=== PATIENT | female | born 1995 | race Caucasian/White ===

== ENCOUNTER → 2023-09-18 14:00 | Outpatient (BNVA) | payer BC, SELFPAY | PROVIDERS: Visit Provider Nurse Practitioner Women's Health | DX: N92.6 Irregular menstruation, unspecified (principal) | CPT/HCPCS: 81025; 82950 ==

== ENCOUNTER → 2023-10-12 15:17 | Outpatient (BNVA) | payer BC, SELFPAY | PROVIDERS: Visit Provider Nurse Practitioner Women's Health | DX: Z36.87 Encounter for antenatal screening for uncertain dates (principal) | CPT/HCPCS: 76801 ==

== ENCOUNTER → 2023-10-27 10:01 | Outpatient (BNVA) | payer BC, SELFPAY | PROVIDERS: Visit Provider Obstetrics & Gynecology | DX: Z34.90 Encounter for supervision of normal pregnancy, unspecified, unspecified trimester (principal) | CPT/HCPCS: 80307; 84315; 85025; 86592; 86762; 86803; 86850; 86900; 87086; 87340; 87624; 87806 ==

== ENCOUNTER → 2023-12-08 08:12 | Outpatient (BNVA) | payer BC, SELFPAY | PROVIDERS: Visit Provider Nurse Practitioner Women's Health | DX: Z34.90 Encounter for supervision of normal pregnancy, unspecified, unspecified trimester (principal); J40 Bronchitis, not specified as acute or chronic | CPT/HCPCS: 82950; 84315; 87340 ==

== ENCOUNTER → 2023-12-15 08:09 | Outpatient (BNVA) | payer BC, SELFPAY | PROVIDERS: Visit Provider Nurse Practitioner Women's Health | DX: Z34.00 Encounter for supervision of normal first pregnancy, unspecified trimester (principal) | CPT/HCPCS: 82951; 82952 ==

== ENCOUNTER → 2024-01-04 14:10 | Outpatient (BNVA) | payer BC, SELFPAY | PROVIDERS: Visit Provider Obstetrics & Gynecology | DX: Z34.92 Encounter for supervision of normal pregnancy, unspecified, second trimester (principal) | CPT/HCPCS: 76805 ==

== ENCOUNTER → 2024-02-22 11:44 | Outpatient (BNVA) | payer BC, SELFPAY | PROVIDERS: Visit Provider Obstetrics & Gynecology | DX: Z34.02 Encounter for supervision of normal first pregnancy, second trimester (principal) | CPT/HCPCS: 82950 ==

== ENCOUNTER → 2024-02-24 08:20 | Outpatient (BNVA) | payer BC, SELFPAY | PROVIDERS: Visit Provider Obstetrics & Gynecology | DX: Z34.02 Encounter for supervision of normal first pregnancy, second trimester (principal) | CPT/HCPCS: 82951; 82952 ==

== ENCOUNTER → 2024-04-04 14:22 | Outpatient (BNVA) | payer BC, SELFPAY | PROVIDERS: Visit Provider Obstetrics & Gynecology | DX: O26.892 Other specified pregnancy related conditions, second trimester (principal); Z67.91 Unspecified blood type, Rh negative | CPT/HCPCS: 86850 ==

== ENCOUNTER → 2024-04-12 13:56 | Outpatient (BNVA) | payer BC, SELFPAY | PROVIDERS: Visit Provider Obstetrics & Gynecology | DX: Z34.02 Encounter for supervision of normal first pregnancy, second trimester (principal) | CPT/HCPCS: 84315; 87086 ==

== ENCOUNTER → 2024-04-19 13:22 | Outpatient (BNVA) | payer BC, SELFPAY | PROVIDERS: Visit Provider Obstetrics & Gynecology | DX: Z36.2 Encounter for other antenatal screening follow-up (principal); Z3A.35 35 weeks gestation of pregnancy | CPT/HCPCS: 76816 ==

== ENCOUNTER → 2024-04-25 14:16 | Outpatient (BNVA) | payer BC, SELFPAY | PROVIDERS: Visit Provider Nurse Practitioner Women's Health | DX: Z34.02 Encounter for supervision of normal first pregnancy, second trimester (principal) | CPT/HCPCS: 84315; 85025; 87081; 87086 ==

== ENCOUNTER 2024-05-11 08:44 | Inpatient (IN) | payer BC, SELFPAY ==
[2024-05-11] VITALS (58 sets, daily range): BP systolic 105–154; BP diastolic 57–94; PULSE 55–121; RESP 16–18; TEMP 36.7–37.1; O2SAT 100; BMI 28.4
[2024-05-11 09:47] LABS: Basophils % 0.3 %; Eosinophils # 0.1 10^3/uL (0.0-0.8); Eosinophils % 0.6 %; Hematocrit 35.2 % (36-47); Lymphocytes # 1.2 10^3/uL (0.8-4.8); Lymphocytes % 12.5 %; Mean Corpuscular HGB Conc 31.8 g/dL (30-55); Mean Corpuscular Hemoglobin 26.6 pg (27-33); Mean Corpuscular Volume 83.6 fl (85-98); Mean Platelet Volume 10.2 fL (7.4-10.4); Monocytes # 0.5 10^3/uL (0.2-0.9); Monocytes % 5.1 %; Neutrophils # 7.71 10^3/uL (1.8-7.7); Nucleated Red Blood Cells % 0 %; Platelet Count 253 10^3/cmm (157-399); Red Blood Count 4.21 10^6/uL (3.85-5.65); Red Cell Distribution Width 14.4 % (12.1-15.1); White Blood Count 9.53 10^3/uL (3.29-11.43)
--- NOTE | 2024-05-11 10:05 | P.HP_ITS ---
Providers/Chief Complaint 2 Admitting Physician: Shawn Pagan MD Primary HEEL WASHER STRINGING MACHINE OPERATOR: Shawn Pagan MD Chief Complaint: Vaginal Discharge HPI HEEL WASHER STRINGING MACHINE OPERATOR History of Present Illness Ngoc Nassar is a 29 year old female G1 EDC May 21, 2024 At 38 w 4 d Presented to L&D c/o fluid leakage Mild UCs No bleeding + movements Present Details : 1 Labs Rubella: Immune RPR: Negative GBS: Negative Medications/Allergies Home Medications Medication Instructions Recorded Confirmed Last Taken Type bupropion HCl 150 mg tablet,12 hr 150 mg PO BID 09/18/23 05/09/24 05/11/24 07:00 History sustained-release (Wellbutrin SR) docosahexaenoic acid 200 mg mg PO DAILY 01/11/24 05/09/24 Unknown History capsule ( DHA) FreeStyle [place] (blood-glucose 1 ea miscellaneous .COMPLEX #1 ea 04/15/24 05/09/24 Unknown Rx meter) vit no.95-ferrous tab PO 05/11/24 05/11/24 07:00 History fumarate 28 mg-folic acid 800 mcg tablet () Allergies Allergy/AdvReac Type Severity Reaction Status Date / Time doxycycline Allergy Intermediate other Verified 05/09/24 16:05 PFSH HEEL WASHER STRINGING MACHINE OPERATOR 2 PFSH: Family History Grandmother Diabetes Heart disease Stroke Colon cancer paternal Mother Diabetes Grandfather Diabetes Heart disease Stroke Colon cancer paternal Denies family history of Ovarian cancer Prostate cancer Hypercholesteremia Hypertension Uterine cancer Thyroid disease Social History Smoking and tobacco/nicotine status: never used tobacco/nicotine History History History 2 1 Term 0 Miscarriages/Ectopic Living Children Care WILLAM Calculator 2 Estimated Delivery Date Method Current WG Current Estimate 05/21/24 LMP (Certain) 38w 5d Other Estimates 05/19/24 Ultrasound #1 39w 0d Specific Issues/Plans * * GESTATIONAL DIABETES: Diet controlled, accuchecks have been normal so far, 1-h glucola done February 22, 2024 was 178, 3-h GTT done February 24, 2024 showed normal fasting glucose and elevated 1-h and 2-h values * RH NEGATIVE STATUS IN : Rhogam given on 04/04/24 * GROUP B STREP NEGATIVE Vitals/I&O/Wt Last Vital Signs Temp 98.7 F 05/12/24 13:45 Pulse 89 05/12/24 13:45 Resp 16 05/12/24 13:45 BP 111/77 05/12/24 13:45 Pulse Ox 99 05/12/24 09:45 O2 Del Method Room Air 05/12/24 09:45 Weight last 48 hrs Weight 171 lb Weight 171 lb Physical Exam 2 Narrative: Weight 171 lbs; 5?5? VS normal General comfortable, awake, alert Lungs: clear Cor: RRR Abd: nontender FH 37 cm, cephalic Cervix 3 cm / 100 / -2 Ext: normal External monitor: heart tracing good variability, + accelerations Urinary Catheter Management: Salcedo: Cath Placed During This Visit: yes Reason for Continuing Indwelling Catheter: Other Urinary Catheter Date of Insertion: 05/11/24 Urinary Catheter Time of Insertion: 12:55 Data 05/12/24 08:03 Results Labs OB ([facility]): 2 Obstetrics US 04/19/24 Blood Type A Negative 05/11/24 Antibody Screen Positive 05/11/24 Hct 30.4 % (36-47) L 05/12/24 Hgb 9.70 g/dL (11.27-16.99) L 05/12/24 Rho(D) Type Rh negative 05/11/24 Plt Count 214 10^3/cmm (157-399) 05/12/24 Hep Bs Antigen Non-reactive (Nonreactive) 12/08/23 Hepatitis C Antibody Non-reactive (Nonreactive) 10/27/23 Rubella IgG Antibody > 500.0 IU/mL (0.0-10.0) H 10/27/23 RPR Nonreactive (Nonreactive) 10/27/23 HIV 1&2 Ab & HIV 1 Ag Non-reactive (Non-Reactiv) 10/27/23 Glucose 1 Hr 50 gm 178 mg/dL (85-140) H 02/22/24 Gest Glucose Tolerance mg/dL 02/24/24 HCG, Qual Positive (Negative) H 09/18/23 Urine Opiates Screen Negative ng/mL (Negative) 10/27/23 Ur Barbiturates Screen Negative ng/mL (Negative) 10/27/23 Ur Phencyclidine Scrn Negative ng/mL (Negative) 10/27/23 Ur Amphetamines Screen Negative ng/mL (Negative) 10/27/23 U Benzodiazepines Scrn Negative ng/mL (Negative) 10/27/23 Urine Cocaine Screen Negative ng/mL (Negative) 10/27/23 U Marijuana (THC) Screen Negative ng/mL (Negative) 10/27/23 Micro Urine Specimen 04/25/24 Pap Smear Interpret See note 10/27/23 A&P Assessment and plan (1) Supervision of normal first : 38 w 4 d Spontaneous rupture of membranes Fetus reassuring Admit Expectant mx Qualifiers: Trimester: second trimester Qualified Code(s): Z34.02 - Encounter for supervision of normal first , second trimester (2) Rh negative status during : Qualifiers: Trimester: second trimester Qualified Code(s): O26.892 - Other specified related conditions, second trimester; Z67.91 - Unspecified blood type, Rh negative Attestations 2 Medical Necessity Statement*: patient at 38 w 4 d, presented with spontaneous rupture of membranes Coding Level of Care Code Acute Code for Chg Fwd Diagnoses Encounter for supervision of normal first in second trimester Z34.02 Trimester: second trimester Rh negative status during in second trimester O26.892; Z67.91 Trimester: second trimester Time Spent (min) 30
[2024-05-11] MEDS: fentaNYL 50 mcg/mL INJ 2mL IVP (11:07)
[2024-05-11] MEDS: dextrose 5%-lactated ringers 1,000 ML 125 ML IV ×2 (11:10→18:07)
[2024-05-11] MEDS: lactated ringers 1,000 ML 999 ML IV (11:18)
--- NOTE | 2024-05-11 12:14 | P.ANESASSM_ITS ---
Pre-Anesthetic Assessment Height/Weight: Height 1.65 m Weight 77.564 kg Pulse BP O2 Del Method 74 145/71 Room Air 05/11/24 11:55 05/11/24 11:55 05/11/24 08:30 Preop Diagnosis: labor pain epidural Was Beta Krissy taken within 24 hours: N/A Was Clonidine taken within 24 hours: N/A Social No alcohol and No tobacco Exam alert, oriented x 3, clear to auscultation bilaterally and regular rate & rhythm Airway Submandibular: within normal limits Cervical ROM: within normal limits Mallampati: Class II Dentition: full Pulmonary None reported bronchitis used inhaler beginning of CV/HEM None reported None reported Hepatic None reported GI Gastroesophageal Reflux Disease Metabolic Diabetes Mellitus (gestational) Musc/skel None reported Neuropsych Anxiety Anesthetic Plan ASA status: 2 Anesthesia: Regional (specify below) Risk of > 500 ml blood loss (7ml/kg in children): No Medications/Allergies Home Medications Medication Instructions Recorded Confirmed Last Taken Type bupropion HCl 150 mg tablet,12 hr 150 mg PO BID 09/18/23 05/09/24 05/11/24 07:00 History sustained-release (Wellbutrin SR) docosahexaenoic acid 200 mg mg PO DAILY 01/11/24 05/09/24 Unknown History capsule ( DHA) FreeStyle [place] (blood-glucose 1 ea miscellaneous .COMPLEX #1 ea 04/15/24 05/09/24 Unknown Rx meter) vit no.95-ferrous tab PO 05/11/24 05/11/24 07:00 History fumarate 28 mg-folic acid 800 mcg tablet () Allergies Allergy/AdvReac Type Severity Reaction Status Date / Time doxycycline Allergy Intermediate other Verified 05/09/24 16:05 Current Medications Generic Name Dose Route Start Last Admin Trade Name Freq PRN Reason Stop Dose Admin Fentanyl 25 - 100 mcg 05/11/24 09:08 05/11/24 11:07 Fentanyl 50 Mcg/Ml Inj 2ml IVP 25 mcg Q1H PRN Administration SEVERE PAIN Dextrose/Lactated Ringer's 1,000 mls @ 125 mls/hr 05/11/24 08:45 05/11/24 11:10 Dextrose 5%-Lactated Ringers IV 125 mls/hr .Q8H OJSIE Administration Lactated Ringer's 1,000 mls @ 999 mls/hr 05/11/24 11:12 05/11/24 11:18 Lactated Ringers IV 999 mls/hr .Q1H1M PRN Administration See label comments PFSH Anesthesia Family History Grandmother Diabetes Heart disease Stroke Colon cancer paternal Mother Diabetes Grandfather Diabetes Heart disease Stroke Colon cancer paternal Denies family history of Ovarian cancer Prostate cancer Hypercholesteremia Hypertension Uterine cancer Thyroid disease Social History Smoking and tobacco/nicotine status: never used tobacco/nicotine Female Reproductive History : 1 Data Anesthesia 05/11/24 08:55 Short CBC 05/11/24 Range/Units 08:55 WBC 9.53 (3.29-11.43) 10^3/uL Hgb 11.20 L (11.27-16.99) g/dL Hct 35.2 L (36-47) % MCV 83.6 L (85-98) fl Plt Count 253 (157-399) 10^3/cmm Neut % (Auto) 81.0 % Neut # (Auto) 7.71 H (1.8-7.7) 10^3/uL Blood Bank 05/11/24 08:55 Blood Type A Negative Rho(D) Type Rh negative Antibody Screen Positive Cardiac Studies: 2 No Data to Display
[2024-05-11] MEDS: ROPivacaine syringe 100 MG/50 ML SYRINGE 13 MG EPIDURAL ×2 (12:21→15:52)
--- NOTE | 2024-05-11 12:42 | ANES.PROC ---
Anesthesia Procedures Procedure/Date: 05/11/24 epidural Procedure Narrative: epidural complete, bolus given, epidural pump initiated with APPOINTMENT CLERK education given, vitals taken during procedure and satisfactory throughout, patient admits to decrease pain, report of procedure to OB RN Epidural: Time Out Performed: Yes Consents Signed: Procedure Consent Consent: requested by attending/covering physician, from patient, risks and benefits reviewed and patient agrees to proceed Lumbar Level: L3-L4 Epidural position: sitting Epidural procedure: sterile prep of area, 1% lidocaine to numb the area (3 mL), 18 g needle, negative for paresthesia passed, neg for paresthesia, test dose given, 1.5% xylocaine 1:200k epi (5 mL), 0.2% Ropivacaine bolus ml (5 mL), placed PCEA, no systemic response, sterile dressing applied, L.U.D. no apparent complications and 0.2% Ropiavacaine @ mls/hr (13 mL/hr)
--- NOTE | 2024-05-11 12:55 | P.PN_ITS ---
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 Subjective: Interval history: Fetus reassuring Having strong UCs Cervix: 5 cm / 100 / -2 Labor: Station: 0 Amniotic Membrane Status: Ruptured Monitor Mode: External Contraction Pattern: Regular Vitals/I&O/Wt Last Vital Signs Temp 98.7 F 05/12/24 13:45 Pulse 89 05/12/24 13:45 Resp 16 05/12/24 13:45 BP 111/77 05/12/24 13:45 Pulse Ox 99 05/12/24 09:45 O2 Del Method Room Air 05/12/24 09:45 Weight last 48 hrs Weight 171 lb Weight 171 lb Physical Exam 2 Urinary Catheter Management: Salcedo: Cath Placed During This Visit: yes Reason for Continuing Indwelling Catheter: Other Urinary Catheter Date of Insertion: 05/11/24 Urinary Catheter Time of Insertion: 12:55 Data 05/12/24 08:03 A&P Assessment and plan (1) Supervision of normal first : Qualifiers: Trimester: second trimester Qualified Code(s): Z34.02 - Encounter for supervision of normal first , second trimester Attestations 2 Medical Necessity Statement*: patient at 38 w 4 d, presented with spontaneous rupture of membranes Coding Level of Care Code Acute Code for Chg Fwd Diagnoses Encounter for supervision of normal first in second trimester Z34.02 Trimester: second trimester Time Spent (min) 20
--- NOTE | 2024-05-11 19:55 | PM.OBGYPN ---
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 Subjective: Interval history: DELIVERY NOTE , vigorous Cord gases and blood obtained Normal placenta and cord No episiotomy Second-degree perineal laceration repaired EBL: 300 cc No complications Labor: Station: 0 Amniotic Membrane Status: Ruptured Monitor Mode: External Contraction Pattern: Regular Vitals/I&O/Wt Last Vital Signs Temp 98.7 F 05/12/24 13:45 Pulse 89 05/12/24 13:45 Resp 16 05/12/24 13:45 BP 111/77 05/12/24 13:45 Pulse Ox 99 05/12/24 09:45 O2 Del Method Room Air 05/12/24 09:45 Weight last 48 hrs Weight 171 lb Weight 171 lb Physical Exam Urinary Catheter Management: Salcedo: Cath Placed During This Visit: yes Reason for Continuing Indwelling Catheter: Other Urinary Catheter Date of Insertion: 05/11/24 Urinary Catheter Time of Insertion: 12:55 Data 05/12/24 08:03 A&P Assessment and plan (1) Vaginal delivery: Attestations Medical Necessity Statement*: patient s/p vaginal delivery, plan care Coding Level of Care Code Acute Code for Chg Fwd Diagnoses Vaginal delivery O80 Time Spent (min) 60
--- NOTE | 2024-05-11 20:00 | PM.DELIVERY ---
Delivery Note: Date of delivery: May 11, 2024 Pre-delivery diagnoses: 38 w 4 d spontaneous rupture of membranes active labor Post-delivery diagnoses: 38 w 4 d spontaneous rupture of membranes active labor vaginal delivery repair of second-degree perineal laceration Procedure: vaginal delivery repair of second-degree perineal laceration Op report anesthesia: Epidural Delivering Physician: Shawn Pagan MD Estimated blood loss (mL): 300 Findings: , vigorous Cord gases and blood obtained Normal placenta and cord No episiotomy Second-degree perineal laceration repaired EBL: 300 cc No complications Pre-Delivery Course: normal labor course fetus was reassuring throughout Delivery: vaginal Post-Delivery Status: good History History History 1 Term 0 Miscarriages/Ectopic Living Children A&P Assessment and plan (1) Vaginal delivery: Coding Level of Care Code Acute Code for Chg Fwd Diagnoses Vaginal delivery O80 Time Spent (min) 60
[2024-05-12] VITALS (8 sets, daily range): BP systolic 95–121; BP diastolic 58–77; PULSE 84–98; RESP 15–18; TEMP 36.7–37.3; O2SAT 95–99
[2024-05-12] MEDS: acetaminophen 325 mg Tablet 650 MG PO (07:16)
[2024-05-12 09:12] LABS: Hematocrit 30.4 % (36-47); Mean Corpuscular HGB Conc 31.9 g/dL (30-55); Mean Corpuscular Hemoglobin 27.2 pg (27-33); Mean Corpuscular Volume 85.2 fl (85-98); Mean Platelet Volume 10.2 fL (7.4-10.4); Platelet Count 214 10^3/cmm (157-399); Red Blood Count 3.57 10^6/uL (3.85-5.65); Red Cell Distribution Width 14.5 % (12.1-15.1); White Blood Count 13.75 10^3/uL (3.29-11.43)
[2024-05-12] MEDS: ibuprofen 800 mg tablet PO ×2 (09:43→15:36)
[2024-05-12] MEDS: docusate sodium 100 mg Capsule PO ×2 (09:43→18:00)
--- NOTE | 2024-05-12 14:25 | PM.OBGYPN ---
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 fundus firm Ext: no edema; nontender Urinary Catheter Management: Salcedo: Cath Placed During This Visit: yes Reason for Continuing Indwelling Catheter: Other Urinary Catheter Date of Insertion: 05/11/24 Urinary Catheter Time of Insertion: 12:55 Data 05/12/24 08:03 A&P Assessment and plan (1) Vaginal delivery: PPD #1 doing well discharge to home today instructions and precautions given call/return if fever, chills, headache, blurry vision, nausea, vomiting, abdominal pain; vaginal bleeding or discharge; shortness of breath, chest pain, leg pains or swelling; inability to void, perineal pain or swelling; feelings of depression or mood changes; thoughts of suicide or harming others; inability to care for baby. f/u in 6 weeks or PRN Attestations Medical Necessity Statement*: patient s/p vaginal delivery, plan to discharge to home today Coding Level of Care Code Acute Code for Chg Fwd Diagnoses Vaginal delivery O80 Time Spent (min) 20
--- NOTE | 2024-05-12 14:30 | P.DS_ITS ---
Discharge Providers SUPERVISORY CIVIL ENGINEER Date of Admission: 05/11/24 08:44 Date of Discharge: 05/12/24 Attending Provider at Admission: Shawn Pagan MD Attending Provider at Discharge: Shawn Pagan MD Consults: none Primary SUPERVISORY CIVIL ENGINEER: Shawn Pagan MD Diagnoses at Discharge Discharge Diagnosis (1) Vaginal delivery: Details from hospital stay: 29 y.o. G1 at 38 w 1 d presented with spontaneous rupture of membranes patient progressed in labor fetus was reassuring throughout patient delivered vaginally without any complications, had repair of second-degr ee perineal laceration patient did well and was discharged to home on the first day Status: Acute Reason for Visit Reason for Visit: Vaginal Discharge Brief History: 29 y.o. G1 at 38 w 1 d presented with spontaneous rupture of membranes Hospital Course Hospital Course 29 y.o. G1 at 38 w 1 d presented with spontaneous rupture of membranes patient progressed in labor fetus was reassuring throughout patient delivered vaginally without any complications, had repair of second- degree perineal laceration patient did well and was discharged to home on the first day Information Peripartum Data: Delivery Method: Vaginal Laceration description: Perineal - 2nd Degree Episiotomy description: None complicati ons: none Physical Exam Narrative: afebrile, VS normal comfortable, awake, alert Abd: soft, nontender. fundus firm Ext: no edema; nontender Urinary Catheter Management: Salcedo: Cath Placed During This Visit: yes Reason for Continuing Indwelling Catheter: Other Urinary Catheter Date of Insertion: 05/11/24 Urinary Catheter Time of Insertion: 12:55 History History History 1 Term 0 Miscarriages/Ectopic Living Children Discharge Data Studies Completed and Pending Laboratory Results WBC 13.75 10^3/uL (3.29-11.43) H 05/12/24 08:03 RBC 3.57 10^6/uL (3.85-5.65) L 05/12/24 08:03 Hgb 9.70 g/dL (11.27-16.99) L 05/12/24 08:03 Hct 30.4 % (36-47) L 05/12/24 08:03 MCV 85.2 fl (85-98) 05/12/24 08:03 MCH 27.2 pg (27-33) 05/12/24 08:03 MCHC 31.9 g/dL (30-55) 05/12/24 08:03 RDW 14.5 % (12.1-15.1) 05/12/24 08:03 Plt Count 214 10^3/cmm (157-399) 05/12/24 08:03 MPV 10.2 fL (7.4-10.4) 05/12/24 08:03 Neut % (Auto) 81.0 % 05/11/24 08:55 Lymph % (Auto) 12.5 % 05/11/24 08:55 [place] % (Auto) 5.1 % 05/11/24 08:55 Eos % (Auto) 0.6 % 05/11/24 08:55 Baso % (Auto) 0.3 % 05/11/24 08:55 Neut # (Auto) 7.71 10^3/uL (1.8-7.7) H 05/11/24 08:55 Lymph # (Auto) 1.2 10^3/uL (0.8-4.8) 05/11/24 08:55 [place] # (Auto) 0.5 10^3/uL (0.2-0.9) 05/11/24 08:55 Eos # (Auto) 0.1 10^3/uL (0.0-0.8) 05/11/24 08:55 Baso # (Auto) 0.0 10^3/uL (0.0-0.1) 05/11/24 08:55 Nucleated RBC % (auto) 0 % 05/11/24 08:55 Nucleated RBCs # 0.0 /100WBC 05/11/24 08:55 Blood Type A Negative 05/11/24 08:55 Rho(D) Type Rh negative 05/11/24 08:55 Antibody Screen Positive 05/11/24 08:55 Antibody Identification Anti-D 05/11/24 08:55 Procedures Performed vaginal delivery repair of second-degree perineal laceration Vitals Last Vital Signs Temp 98.7 F 05/12/24 13:45 Pulse 89 05/12/24 13:45 Resp 16 05/12/24 13:45 BP 111/77 05/12/24 13:45 Pulse Ox 99 05/12/24 09:45 O2 Del Method Room Air 05/12/24 09:45 Results Labs OB ([facility]): Obstetrics US 04/19/24 Blood Type A Negative 05/11/24 Antibody Screen Positive 05/11/24 Hct 30.4 % (36-47) L 05/12/24 Hgb 9.70 g/dL (11.27-16.99) L 05/12/24 Rho(D) Type Rh negative 05/11/24 Plt Count 214 10^3/cmm (157-399) 05/12/24 Hep Bs Antigen Non-reactive (Nonreactive) 12/08/23 Hepatitis C Antibody Non-reactive (Nonreactive) 10/27/23 Rubella IgG Antibody > 500.0 IU/mL (0.0-10.0) H 10/27/23 RPR Nonreactive (Nonreactive) 10/27/23 HIV 1&2 Ab & HIV 1 Ag Non-reactive (Non-Reactiv) 10/27/23 Glucose 1 Hr 50 gm 178 mg/dL (85-140) H 02/22/24 Gest Glucose Tolerance mg/dL 02/24/24 HCG, Qual Positive (Negative) H 09/18/23 Urine Opiates Screen Negative ng/mL (Negative) 10/27/23 Ur Barbiturates Screen Negative ng/mL (Negative) 10/27/23 Ur Phencyclidine Scrn Negative ng/mL (Negative) 10/27/23 Ur Amphetamines Screen Negative ng/mL (Negative) 10/27/23 U Benzodiazepines Scrn Negative ng/mL (Negative) 10/27/23 Urine Cocaine Screen Negative ng/mL (Negative) 10/27/23 U Marijuana (THC) Screen Negative ng/mL (Negative) 10/27/23 Micro Urine Specimen 04/25/24 Pap Smear Interpret See note 10/27/23 Discharge Plan Discharge Patient Disposition: Home Condition: Stable Prescriptions: Continued DHA 200 mg capsule PO DAILY bupropion HCl [Wellbutrin SR] 150 mg tablet sustained-release 12 hr 150 mg PO BID PNV cmb#95-ferrous fumarate-FA [] 28 mg iron- 800 mcg Tablet PO Patient Comments: unsure of brand Discharge Orders: Discharge Order (Routine); Ordered 05/12/24 Ordered By: Shawn Pagan Referrals: Shawn Pagan MD [Physician] - 06/27/24 1:45 pm Discharge Diet: Usual diet Discharge Activity: Resume usual activity Patient Instructions: Depression (DC), Opioid Safety (DC), Preeclampsia and Eclampsia After Delivery (GEN), Hemorrhage (DC), OB Discharge Report, OB Food/Drug Interaction Guide, Opioid Safety, OB Home Care, OB Vaginal Deliveries - [facility], Abnormal Bleeding Discharge Attestations SUPERVISORY CIVIL ENGINEER Time Spent in Discharge Care*: less than 30 min Coding Level of Care Code Acute Code for Chg Fwd Diagnoses Vaginal delivery O80 Time Spent (min) 20
[2024-05-12] MEDS: benzocaine-menthol 78 gm Canister 1 SPRAY TOPICAL (18:38)
== END 2024-05-12 21:55 | disposition home or self-care (01) | DRG 806 ==
LOC: OPOB 08:45 → OBGYN 08:45
PROVIDERS: Admitting Provider Obstetrics & Gynecology; Visit Provider Obstetrics & Gynecology
DX: O24.429 Gestational diabetes mellitus in childbirth, unspecified control (principal); O36.0930 Maternal care for other rhesus isoimmunization, third trimester, not applicable or unspecified; Z37.0 Single live birth; Z3A.38 38 weeks gestation of pregnancy; O70.1 Second degree perineal laceration during delivery; Z83.3 Family history of diabetes mellitus; Z82.49 Family history of ischemic heart disease and other diseases of the circulatory system; Z82.3 Family history of stroke; Z80.0 Family history of malignant neoplasm of digestive organs
CPT/HCPCS: 36415; 51702; 59025; 59409; 80503; 85025; 85027; 86850; 86870; 86900; 96374; 98960; 99211; J2795; J3010; J7120; J7121

== ENCOUNTER → 2024-06-27 14:38 | Outpatient (BNVA) | payer BC, SELFPAY | PROVIDERS: Visit Provider Nurse Practitioner Women's Health | DX: D64.9 Anemia, unspecified (principal) | CPT/HCPCS: 85025 ==